=== PATIENT | male | born 1990 | race Hispanic/Latino ===

== ENCOUNTER 2023-03-16 14:15 | Outpatient (CLI) | payer OTHER | END 2023-03-16 14:16 | disposition home or self-care (01) | LOC: ULT 14:15 | PROVIDERS: ATTEND Urology | DX: Z31.69 Encounter for other general counseling and advice on procreation (principal); N50.82 Scrotal pain; R10.31 Right lower quadrant pain; N50.3 Cyst of epididymis | CPT/HCPCS: 76705; 76870; 93976 ==